=== PATIENT | male | born 1995 | race Caucasian/White ===

== ENCOUNTER 2017-03-27 12:54 | Emergency (ER) | payer MEDICAID ==
[~2017-03-27] VITALS: Ht 177.8 cm; Wt 75.8 kg
[2017-03-27] MEDS ORDERED: ONDANSETRON 4MG ODT PO ONE (13:45)
[2017-03-27] MEDS ORDERED: ACETAMINOPHEN 500MG TABLET PO ONE (13:45)
[2017-03-27 16:47] VITALS: BP 111/61
== END 2017-03-27 16:52 | disposition home or self-care (01) ==
LOC: ER 13:23
DX: S00.01XA Abrasion of scalp, initial encounter (principal); R03.0 Elevated blood-pressure reading, without diagnosis of hypertension; Z88.6 Allergy status to analgesic agent; Y08.89XA Assault by other specified means, initial encounter; Y93.89 Activity, other specified; Y92.89 Other specified places as the place of occurrence of the external cause; Y99.8 Other external cause status
CPT/HCPCS: 70450; 70480; 99284; Q0162; Z7610

== ENCOUNTER 2017-12-22 15:21 | Emergency (ER) | payer MEDICAID ==
[~2017-12-22] VITALS: Ht 170.2 cm; Wt 80.0 kg
[2017-12-22] MEDS ORDERED: PENICILLIN G BENZATHINE 1,200,000 UNITS/2ML SYR IM ONE (16:45)
[2017-12-22] MEDS ORDERED: DEXAMETHASONE 10 MG/ML VIAL IM ONE (16:45)
[2017-12-22 18:50] VITALS: BP 120/81
== END 2017-12-22 18:58 | disposition home or self-care (01) ==
LOC: ER 15:31
DX: J02.9 Acute pharyngitis, unspecified (principal); F17.200 Nicotine dependence, unspecified, uncomplicated
CPT/HCPCS: 96372; 99284; J0561; J1100